=== PATIENT | female | born 1945 | race African-American/Black ===

== ENCOUNTER 2023-09-01 09:49 | Emergency (ER) | payer MEDICARE, SELFPAY ==
--- NOTE | ~2023-09-01 | CT_ITS ---
EXAMINATION: CT brain wo con DATE: 09/01/2023 11:50 INDICATION: Headache TECHNIQUE: Computed tomography (CT) of the head was performed without intravenous contrast. Sagittal and coronal reconstructions were performed. The mA was adjusted according to patient size. Iterative reconstruction technique was employed. The dose-length product was 605.33 mGy-cm. COMPARISON: None FINDINGS: No acute intracranial hemorrhage, acute infarction or abnormal extra axial fluid collection. There is mild to moderate scattered white matter hypoattenuation consistent with chronic small vessel ischemi c disease. Ventricles are normal and symmetric. No mass/mass effect. Mucosal thickening the paranasal sinuses with near complete low density opacification of the right sphenoid sinus. There is dependent ly layering high attenuation fluid suspicious for blood in the bilateral maxillary sinuses. Correlate for epistaxis. The orbits and mastoid air cells are normal. IMPRESSION: 1. Mild to moderate scattered white matter hypoattenuation consistent with chronic small vessel ische shirley disease. 2. Sinus disease with near complete opacification of the right sphenoid sinus and with dependently la yering high attenuation fluid suspicious for blood in the bilateral maxillary sinuses. Correlate for epistaxis and either acute sinusitis or trauma. Reviewed, dictated and finalized at location B. IMPRESSION: 1. 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 2. Sinus disease with near complete opacification of the right sphenoid sinus a nd with dependently layering high attenuation fluid suspicious for blood in the bilateral maxillary sinuses. Correlate for epistaxis and either acute sinusiti s or trauma.
[2023-09-01 10:06] VITALS: BP 150/60; PULSE 60; RESP 18; TEMP 36.4; O2SAT 98
--- NOTE | 2023-09-01 11:29 | ED.HA ---
HPI - Headache General Chief Complaint: Headache Stated Complaint: TORRES Time Seen by Provider: 09/01/23 11:17 Source: patient Mode of arrival: ambulatory Limitations: no limitations History of Present Illness HPI Narrative: Madhu is a 78-year-old female patient presenting to the clinic today with complaints of a headache that is been going on 0600 this morning. States the pain is a 10/ 10. Headaches been off and on for the past couple weeks. Also reporting some associated nausea and vomiting today. States the pain is throbbing across her forehead. States that her blood pressure has not been high. Last eye exam was a couple years ago. States she has a constant cough and nasal drainage Related Data Allergies Allergy/AdvReac Type Severity Reaction Status Date / Time codeine AdvReac Unknown Verified 09/01/23 12:35 Iodinated Contrast Media AdvReac Hives Verified 09/01/23 12:35 Review of Systems Review of Systems: Pertinent positives per HPI. Patient denies any fever, chills, rash, visual changes, dizziness, cough, runny nose, sore throat, shortness of breath, chest pain, palpitations, nausea, vomiting, diarrhea, constipation, abdominal pain, or any urinary issues. PMFSH Comments At the time of my signature, I reviewed and agree with the nursing past medical, surgical, social, and family history. There is no relevant family history pertinent to the patient complaint. Exam Narrative: General: Well-developed, well nourished, in no apparent distress Head: Normocephalic, atraumatic Eyes: Pupils equally round and reactive to light bilaterally, EOM intact, sclera and conjunctive clear, no discharge, lids normal Ears: TMs intact and clear, ear canals clear, no drainage, grossly hearing normal. Nose: Nares patent, clear nasal discharge, moderate inflammation, frontal sinus tenderness. Mouth: Oropharynx without lesions or masses, good dentition, MMM. Tongue midline, even rise and fall of uvula Neck: Supple, trachea midline, no enlargement of anterior or posterior cervical nodes, no thyroid masses or goiter palpable. Cardio: Regular rate and rhythm, s1 and s2 normal, no murmur appreciated. Resp: Clear to auscultation bilaterally anteriorly and posteriorly, no rhonchi, rales, wheezing or rubs Musculoskeletal: No deformity, non-tender to palpation, grossly normal range of motion, muscle strength strong and equal, peripheral pulse strong, no edema, no cyanosis, normal gait and station Neuro: Alert and oriented x4 with normal speech, no focal deficits, cranial nerves I through XII intact, muscle strength 5 out of 5, sensation intact bilaterally, negative Romberg test Course Course Emergency Course: Portions of this record may have been created with voice recognition software. Vital Signs Vital signs: Vital Signs Temperature 36.4 C L 09/01/23 10:06 Pulse Rate 60 09/01/23 10:06 Respiratory Rate 18 09/01/23 10:06 Blood Pressure 150/60 H 09/01/23 10:06 Pulse Oximetry 98 09/01/23 10:06 Temperature 36.4 C L 09/01/23 10:06 Pulse Rate 55 L 09/01/23 12:43 Respiratory Rate 16 09/01/23 12:43 Blood Pressure 172/61 H 09/01/23 12:43 Pulse Oximetry 99 09/01/23 12:43 Vital signs reviewed MDM - Headache MDM Narrative Medical decision making narrative: At the time of visit patient is resting comfortably on the exam table. Patient appears to be nontoxic. Labs: CBC shows white blood cell count of 10.6, H&H of 12.4 in 39.4, platelet counts 231, anti coagulation studies within normal limits, chemistry shows sodium 139, potassium of 4.2, chloride 102, carbon dioxide 29, BUN of 29, creatinine is 1, GFR is greater than 60, liver function test within normal limits, total protein is 9 with an alk-phos of 180 Diagnostics: CT brain shows 1. Mild to moderate scattered white matter hypoattenuation consistent with chronic small vessel ischemic disease. 2. Sinus disease with near complete opacification o
[2023-09-01] MEDS: KETOROLAC 15 MG/ML VIAL (*BKC) IV PUSH (12:36)
[2023-09-01] MEDS: ONDANSETRON INJ 4 MG/2 ML VIAL IV PUSH (12:36)
[2023-09-01] MEDS: SODIUM CHLORIDE 0.9% IV 1,000 ML 999 ML IV CONT (12:36)
[2023-09-01] MEDS: diphenhydrAMINE HCl INJ 50 MG/ML VIAL 25 MG IV PUSH (12:37)
[2023-09-01 12:43] VITALS: BP 172/61; PULSE 55; RESP 16; O2SAT 99
[2023-09-01 12:44] LABS: Basophils Absolute Auto 0.1 K/mm3 (0.0-0.1); Basophils Percent Auto 0.6 % (0.2-1.2); Eosinophils Absolute Auto 0.7 K/mm3 (0-0.3); Eosinophils Percent Auto 6.8 % (0-4.4); Hematocrit 39.4 % (37.0-47.0); Hemoglobin 12.4 g/dL (12.0-15.0); Immature Granulocyte Absolute 0.03 K/mm3 (0.00-0.031); Immature Granulocyte Percent A 0.3 % (0-0.5); Mean Corpuscular HGB Conc 31.5 g/dl (32-36); Mean Corpuscular Hemoglobin 25.2 pg (26-34); Mean Corpuscular Volume 80.1 fl (80-100); Mean Platelet Volume 10.7 fl (7.4-10.4); Monocytes Absolute Auto 0.4 K/mm3 (0.1-0.6); Monocytes Percent Auto 4.1 % (2.6-8.5); Neutrophils Absolute Auto 7.5 K/mm3 (1.3-6.7); Neutrophils Percent Auto 71.2 % (45.5-73.1); Platelet Count Result 231 k/mm3 (150-375); Red Blood Count 4.92 M/mm3 (4.2-5.4); Red Cell Distribution Width 15.4 % (11.5-14.5); White Blood Count 10.6 K/mm3 (4.5-10.0)
[2023-09-01 12:49] LABS: Prothrombin Time 13.7 Seconds (11.1-14.7)
[2023-09-01 12:50] LABS: Alanine Aminotransferase 19 U/L (6-35); Albumin Level 5.1 g/dL (3.5-5.1); Alkaline Phosphatase 180 U/L (38-126); Anion Gap 8 mmol/L (4-12); Aspartate Amino Transferase 33 U/L (14-36); Bilirubin,Total 0.8 mg/dL (0.2-1.3); Blood Urea Nitrogen 29 mg/dL (7-17); Carbon Dioxide 29 mmol/L (22-30); Chloride 102 mmol/L (98-107); Estimated CRCL calculation 43 ml/min; Estimated Glomerular Filt Rate > 60; Glucose 104 mg/dL (65-110); Potassium 4.2 mmol/L (3.4-5.0); Sodium 139 mmol/L (137-145)
== END 2023-09-01 14:22 | disposition home or self-care (01) ==
PROVIDERS: Emergency Provider Nurse Practitioner Family
DX: J01.30 Acute sphenoidal sinusitis, unspecified (principal); G44.89 Other headache syndrome
CPT/HCPCS: 36415; 70450; 80053; 85025; 85610; 85730; 96361; 96374; 96375; 99284; J1200; J1885; J2405; J7030

== ENCOUNTER 2024-08-22 22:40 | Emergency (ER) | payer MEDICARE, SELFPAY ==
[2024-08-22 22:51] VITALS: BP 144/60; PULSE 99; RESP 18; TEMP 36.7; O2SAT 100
--- NOTE | 2024-08-23 01:27 | ED_ITS ---
HPI - Wound/Laceration General Chief Complaint: Wound/Laceration Stated Complaint: right leg lac Time Seen by Provider: 08/23/24 01:21 Source: patient Mode of arrival: ambulatory Limitations: no limitations History of Present Illness HPI narrative: Patient is a 79-year-old female who presents the ED with report of a laceration to her right lower leg. Patient reports she was trying to break up a porcelain toilet when a piece of the porcelain cut her right lower leg. She sustained a laceration just above her ankle. Has pain to the area, normal range of motion. Denies numbness. Denies any other injuries. Tetanus unknown. Related Data Allergies Allergy/AdvReac Type Severity Reaction Status Date / Time codeine AdvReac Unknown Verified 09/01/23 12:35 Iodinated Contrast Media AdvReac Hives Verified 09/01/23 12:35 Review of Systems Review of Systems: All systems reviewed & are unremarkable except as noted in HPI. All systems reviewed & are unremarkable except as noted in HPI and below Exam Narrative: GENERAL: Well appearing, well-nourished, non-toxic, in no acute distress. HEAD: Normocephalic, atraumatic. RESPIRATORY: Airway patent, respirations nonlabored. CARDIOVASCULAR: Regular rate and rhythm. Pedal pulses intact and easily palpable. MUSCULOSKELETAL: Moves all extremities. No gross deformities. Plantar and dorsiflexion range of motion intact to right ankle, some pain associated with this. Sensation intact throughout foot and toes. SKIN: Warm, dry, normal color. 3 cm curvilinear laceration to anterior right lower leg, no active bleeding. NEURO: A&O X3. Speech clear. Steady gait. No ataxic movements. PSYCHIATRIC: Appropriate mood and affect. Normal interaction. Course Vital Signs Vital signs: Vital Signs Temperature 98.1 F 08/22/24 22:51 Pulse Rate 99 08/22/24 22:51 Respiratory Rate 18 08/22/24 22:51 Blood Pressure 144/60 H 08/22/24 22:51 Pulse Oximetry 100 08/22/24 22:51 Oxygen Delivery Room Air 08/22/24 22:51 Temperature 98.1 F 08/22/24 22:51 Pulse Rate 99 08/22/24 22:51 Respiratory Rate 18 08/22/24 22:51 Blood Pressure 144/60 H 08/22/24 22:51 Pulse Oximetry 100 08/22/24 22:51 Oxygen Delivery Room Air 08/22/24 22:51 Procedures Laceration Laceration 1: Date: 08/23/24 Time: 01:30 Site: lower extremity Side (If applicable): right Size (cm): 3 Description: linear Depth: simple, single layer Local Anesthetic: lidocaine 1% Amount of anesthesia used (mL): 7 Pre-repair: wound explored and irrigated ====== Skin Level ====== Skin layer closed with: nylon Size (cm): 4-0 Number of sutures: 8 Technique: simple, interrupted ====== Subcutaneous Layer ====== ====== Muscle Layer ====== ====== Tendon Layer ====== MDM - Wound/Laceration MDM Narrative Medical decision making narrative: Laceration repaired without complications. Tetanus updated in the ED. Patient given wound care instructions and reasons to return. Medical Records Attestation: I reviewed the patient's medical records. Discharge Plan Discharge Clinical Impression: Laceration of right lower leg Qualifiers: Encounter type: initial encounter Qualified Code(s): S81.811A - Laceration without foreign body, right lower leg, initial encounter Patient Disposition: Home Condition: Stable Instructions: Antibiotic Form, Care For Your Stitches (ED), Laceration (ED) Additional Instructions: Return to the ED or visit an urgent care or your PCP for follow-up and wound check/suture removal in 10 to 14 days. Keep the wound dry for 24 hours. You may remove the bandage after 24 hours and wash with simple soap and water, but do not scrub. Continue Tylenol as needed for pain. Elevate leg whenever able. Return to the ED if you experience uncontrolled bleeding, fever, chills, pus- like drainage, or redness/swelling/warmth surrounding the wound, as these could be signs of an infection. Patient Language: Slovenian Prescriptions: No Action amoxicillin-pot clavulanate 875-125 mg tablet 1 tablet PO Q12H 10 Days Qty: 20 0RF Follow-up/Referrals: UNKNOWN,DOCTOR [Primary Care Provider] - Time of Disposition: 01:28
[2024-08-23] MEDS: ACETAMINOPHEN 500 MG TABLET 1000 MG PO (01:34)
[2024-08-23] MEDS: LIDOCAINE 1% LOCAL INJ 10 ML VIAL INFILTRATE (01:34)
[2024-08-23] MEDS: TETANUS,DIPHTHERIA,AC PERTUSSIS ADULT (0.5 ML) BOOSTRIX IM (01:34)
[2024-08-23 02:31] VITALS: BP 130/76; PULSE 67; RESP 16; TEMP 37.1; O2SAT 98
== END 2024-08-23 02:33 | disposition home or self-care (01) ==
LOC: ANHED 08-23 02:07
PROVIDERS: Emergency Provider Physician Assistant; PCP Internal Medicine
DX: S81.811A Laceration without foreign body, right lower leg, initial encounter (principal); Z23 Encounter for immunization; W26.8XXA Contact with other sharp object(s), not elsewhere classified, initial encounter
CPT/HCPCS: 12013; 90471; 90715; 99282; A9270; J2003